=== PATIENT | male | born 1935 | race Caucasian/White ===

== ENCOUNTER 2016-09-22 18:40 | Inpatient (IN) ==
--- NOTE | 2016-09-22 20:44 | Diag Imaging Result Doc PS360 ---
EXAM: HEAD W/O CONTRAST HISTORY: fall, dementia TECHNIQUE: CT of the head without contrast COMMENT: there is generalized cerebral atrophy. There are some calcifications in the internal carotid arteries bilaterally. There is patchy lucency in the periventricular and subcortical white matter. No mass effect bleed or abnormal extra-axial fluid collection is present. The calvarium is somewhat thickened with hyperostosis frontalis interna. There is no evidence of acute bony disease. IMPRESSION: No evidence of acute disease. Chronic microvascular white matter disease. Cerebral atrophy. Electronically signed by Suman De Leon 09/22/2016 8:42 PM
[2016-09-22 20:58] LABS: BASO% 0.3 % (0.0-0.8); EOS# 0.09 X1000 (0.0-0.7); EOS% 0.6 % (0.0-10.0); HEMOGLOBIN 15.8 g/dL (14.0-18.0); IMM GRAN# 0.07 X1000 (0.0-0.04); IMM GRAN% 0.5 % (0.0-0.5); LYMPH# 2.08 X1000 (1.2-3.4); LYMPH% 13.7 % (20.5-51.1); MANUAL DIFF NEEDED? NO; MCH 31.2 PG (27-31); MCHC 35.9 g/dL (33-37); MONO# 1.39 X1000 (0.11-0.59); MONO% 9.2 % (1.7-9.3); MPV 10.3 FL (7.4-10.4); NEUT% 75.7 % (42.2-75.2); PLT 223 X1000 (130-400); RBC 5.06 XMIL (4.7-6.1)
[2016-09-22 21:00] LABS: BILIRUBIN URINE NEGATIVE (NEGATIVE); BLOOD URINE NEGATIVE (NEGATIVE); COLOR YELLOW; GLUCOSE URINE 1000 mg/dL (NEGATIVE); LEUKOCYTES URINE NEGATIVE (NEGATIVE); NITRITE URINE NEGATIVE (NEGATIVE); PH URINE 6.5; PROTEIN URINE TRACE mg/dL (NEGATIVE); SP GRAVITY URINE 1.008; TURBIDITY URINE CLEAR (CLEAR); UR EPITHELIAL CELLS <10 /HPF (<10); URINE BACTERIA NEGATIVE /HPF; URINE CULTURE NEEDED? NO; URINE MICRO REVIEW NEEDED? NO; URINE RBC <10 /HPF (<10); URINE SOURCE CLEAN CATCH; URINE WBC <10 /HPF (<10); UROBILINOGEN URINE NORMAL (NORMAL)
[2016-09-22 21:16] LABS: UR AMPHETAMINES QUAL NONE DETECTED (NONE DETECT); UR BARBITUATES QUAL NONE DETECTED (NONE DETECT); UR BENZODIAZEPIN QUAL NONE DETECTED (NONE DETECT); UR CANNABINOIDS QUAL NONE DETECTED (NONE DETECT); UR COCAINE QUAL NONE DETECTED (NONE DETECT); UR METHADONE QUAL NONE DETECTED (NONE DETECT); UR OPIATES QUAL NONE DETECTED (NONE DETECT); UR OXYCODONE QUAL NONE DETECTED (NONE DETECT); UR PCP QUAL NONE DETECTED (NONE DETECT)
[2016-09-22 21:17] LABS: ALBUMIN 3.7 g/dL (3.5-5.0); CALCIUM 9.2 mg/dL (8.8-10.2); POTASSIUM 4.1 mmol/L (3.5-5.1); TOTAL BILIRUBIN 0.89 mg/dL (0.20-1.00); TOTAL PROTEIN 6.7 g/dL (6.3-8.3)
--- NOTE | 2016-09-23 02:13 | PROVIDER DOCUMENTATION ---
This chart was entered by Patience Hernandez Scribe, acting as scribe for Vernon Rahman PA. HPI-Musculoskeletal Pain/Inj - GENERAL Chief Complaint: Fall Stated Complaint: AMS Time Seen by Provider: 09/22/16 20:17 Source: family - HX OF PRESENT ILLNESS-MUSKULOSKELTAL Nature of Presenting Problem: 81 Y/O M presents to ED with Fall. pt fall tis evening while gwetting out car and walking to his home in the [place]. EMS was called by neighbors. PT fell and broke his cane. Pt denies pain and LOC, unsure of how he fell. pT was a hx of dementia, and was covered in urine when he was found. Pt has noted yellow crusting generalized throughout body. Pt also lives alone. Quality of Pain: reports: none Severity in ED: moderate, severe Onset/Duration: this evening Timing: still present Any recent injury?: No Locality of Occurance: Home - FALL INJURY Location of Pain/Injury: reports: none Pain Radiation: reports: no radiation Reason for Fall: reports: unknown Symptoms prior to fall:: reports: none Loss of Consciousness: no loss of consciousness Injury Associated Symptoms: reports: denies symptoms Review of Systems - Adult - REVIEW OF SYSTEMS - ADULT Constitutional: denies: chills, fever Eyes: reports: no symptoms reported Ears, Nose, Mouth & Throat: reports: no symptoms reported Cardiovascular: reports: no symptoms reported Respiratory: reports: no symptoms reported Gastrointestinal: reports: no symptoms reported Genitourinary: reports: no symptoms reported Musculoskeletal: reports: no symptoms reported, other (fell) Integumentary: reports: no symptoms reported Neurological: reports: no symptoms reported Psychiatric: reports: no symptoms reported Endocrine: reports: no symptoms reported Hematologic/Lymphatic: reports: no symptoms reported Allergic/Immunologic: reports: no symptoms reported All Other Systems: Reviewed and Negative Past History - Adult - PAST MEDICAL HISTORY-ADULT Review of Records: reports: Old Records Reviewed, Nursing Assessment Review, Medications Reviewed, Social history reviewed & non-contributory. Physical Exam-Injury Related - Physical Exam-Injury Related General Appearance: alert, no apparent distress Eyes: PERRL/EOMI, pink conjunctivae Head, Ears, Nose, Mouth & Throat: moist mucous membranes, normal ENT inspection , TMs normal, pharynx normal Neck: full range of motion, supple, normal inspection Respiratory: lungs clear, normal breath sounds Cardiovascular: regular rate, rhythm Abdominal Exam: non tender, soft Back Exam: no CVA tenderness, no vertebral tenderness Extremity: non-tender. negative: normal gait Integumentary: other (yellow crusting generalized on body) Progress - PLAN OF CARE/RESULTS Progress/Plan/Lab Results: Laboratory Results - last 24 hr 09/22/16 09/22/16 09/22/16 20:35 20:38 20:40 WBC 15.15 H RBC 5.06 Hgb 15.8 Hct 44.0 MCV 87.0 MCH 31.2 H MCHC 35.9 RDW Std Deviation 12.5 Plt Count 223 MPV 10.3 Immature Gran % (Auto) 0.5 Neut % (Auto) 75.7 H Lymph % (Auto) 13.7 L Austin % (Auto) 9.2 Eos % (Auto) 0.6 Baso % (Auto) 0.3 Immature Gran # (Auto) 0.07 H Neut # (Auto) 11.47 H Lymph # (Auto) 2.08 Austin # (Auto) 1.39 H Eos # (Auto) 0.09 Baso # (Auto) 0.05 D-Dimer 0.66 H Sodium Potassium Chloride Carbon Dioxide Anion Gap BUN Creatinine Estimated GFR/1.73 m2 BUN/Creatinine Ratio Glucose Calculated Osmolality Calcium Total Bilirubin AST ALT Alkaline Phosphatase Total Protein Albumin Globulin Albumin/Globulin Ratio Urine Source CLEAN CATCH Urine Color YELLOW Urine Turbidity CLEAR Urine pH 6.5 Ur Specific [place] 1.008 Urine Protein TRACE A Ur Glucose (Stick) 1000 A Ur Ketones (Stick) NEGATIVE Urine Blood NEGATIVE Urine Nitrite NEGATIVE Urine Bilirubin NEGATIVE Urobilinogen Dipstick NORMAL Urine Leukocytes NEGATIVE Urine WBC (Auto) <10 Urine RBC (Auto) <10 U Epithel Cells (Auto) <10 Urine Bacteria (Auto) NEGATIVE Urine Opiates Screen Ur Oxycodone Screen Ur Methadone, Qual Ur Barbiturates Screen Ur Phencyclidine Scrn Ur Amphetamines Screen U Benzodiazepines Scrn Urine Cocaine Screen U Cannabinoids Screen 09/22/16 09/22/16 20:48 20:48 WBC RBC Hgb Hct MCV MCH MCHC RDW Std Deviation Plt Count MPV Immature Gran % (Auto) Neut % (Auto) Lymph % (Auto) Austin % (Auto) Eos % (Auto) Baso % (Auto) Immature Gran # (Auto) Neut # (Auto) Lymph # (Auto) Austin # (Auto) Eos # (Auto) Baso # (Auto) D-Dimer Sodium 135 L Potassium 4.1 Chloride 96 L Carbon Dioxide 26 Anion Gap 13 BUN 24 H Creatinine 1.2 Estimated GFR/1.73 m2 58 BUN/Creatinine Ratio 20 Glucose 301 H Calculated Osmolality 285 Calcium 9.2 Total Bilirubin 0.89 AST 18 ALT 23 Alkaline Phosphatase 69 Total Protein 6.7 Albumin 3.7 Globulin 3.0 Albumin/Globulin Ratio 1.2 Urine Source Urine Color Urine Turbidity Urine pH Ur Specific [place] Urine Protein Ur Glucose (Stick) Ur Ketones (Stick) Urine Blood Urine Nitrite Urine Bilirubin Urobilinogen Dipstick Urine Leukocytes Urine WBC (Auto) Urine RBC (Auto) U Epithel Cells (Auto) Urine Bacteria (Auto) Urine Opiates Screen NONE DETECTED Ur Oxycodone Screen NONE DETECTED Ur Methadone, Qual NONE DETECTED Ur Barbiturates Screen NONE DETECTED Ur Phencyclidine Scrn NONE DETECTED Ur Amphetamines Screen NONE DETECTED U Benzodiazepines Scrn NONE DETECTED Urine Cocaine Screen NONE DETECTED U Cannabinoids Screen NONE DETECTED Orders Category Date Time Status Admit - [facility] Routine AdmDCTranf 09/23/16 02:36 Ordered Activity - Strict Bedrest ORDERED Care 09/23/16 02:36 Active FSBS/Accucheck Result AC + HS Care 09/23/16 02:36 Active Intake and Output-Strict ORDERED Care 09/23/16 02:36 Active Vital Signs Order Q 8-HR ASSESS Care 09/23/16 02:36 Active Social Service Consult Routine Cons 09/23/16 02:36 Active Wound Care/ET Consult DIRECTED Cons 09/23/16 02:36 Ordered Diabetic Diet Diet 09/23/16 01:34 Active ANGIOGRAM/PULMONARY ARTERIES [CT] Stat Exams 09/23/16 00:32 Completed CHEST-1 VIEW [RAD] Stat Exams 09/22/16 23:23 Completed HEAD W/O CONTRAST [CT] Stat Exams 09/22/16 20:17 Completed BASIC METABOLIC PANEL [CHEM] Routine Lab 09/24/16 06:00 Ordered CBC WITH DIFF [HEME] Routine Lab 09/24/16 06:00 Ordered CBC WITH DIFF [HEME] Stat Lab 09/22/16 20:38 Completed COMPREHENSIVE METABOLIC PANEL [CHEM] Stat Lab 09/22/16 20:48 Completed D-DIMER [CHEM] Stat Lab 09/22/16 20:35 Completed TSH Routine Lab 09/24/16 06:00 Ordered UA NIMS W/REFLEX CULT [URINALYSIS] Stat Lab 09/22/16 20:40 Completed UDS [URINE DRUG SCREEN] Stat Lab 09/22/16 20:48 Completed 0.9% Sodium Chloride Inj [Ns] 1,000 ml Med 09/23/16 02:36 Active IV 75 mls/hr Ammonium Lactate 12% Lotion [Lac-Hydrin 12% Lotion] Med 09/23/16 09:00 Active See Dose Instructions TOP BID Enoxaparin [Lovenox] Med 09/23/16 02:36 Active 40 mg SUBQ Q24H Insulin Lispro [Humalog] Med 09/23/16 07:00 Active See Protocol SUBQ 0700,1100,1600,2100 Nystatin Powder [Mycostatin Powder] Med 09/23/16 09:00 Active See Dose Instructions TOP BID Ondansetron [Zofran] Med 09/23/16 02:36 Active 4 mg IV Q4H PRN PRN Physical Therapy Eval/Treatment [OM.PT] Routine Ther 09/23/16 02:36 Active Transfer/Admit Order [TRANSFER] Routine Transfer 09/23/16 01:31 Completed Result Diagrams: 09/22/16 20:38 09/22/16 20:48 - REASSESSMENT Reassessment #1 Time Reassessed: 23:45 (Checked D dimer for pt to r/o DVT/PE as per family has been very immobile. Pt is tachycardic. D dimer elevated, so ordered CT. Dr. Esquivel came to evaluate the pt to see if needs admission, and pt is giong to be admitted to the hospital. ) - EKG 1 Time of EKG reading by physician:: 21:05 EKG Read and Signed by:: Geoffrey Smith EKG Interpretation (*Must complete 3 of following elements*): Normal Rate: 95 Rhythm: NSR Comments: Normal ECG - CONSULTS/PCP/HOSPITALIST Notification #1 *Consult/PCP/Hospitalist*: Dr. Esquivel Time Discussed: 22:34 (Family is wanting pt admitted as they cannot take him back home (police stated that the home is unlivable and cannot be re-entered, and the daughter has no room for pt). Unfortunately there is no admission criteria for the pt at this time, and Dr. Esquivel cannot admit pt for social reasons, does not allow. ) Consult Disposition: other Departure - Departure Date of Disposition Decision: 09/22/16 Time of Disposition Decision: 00:00 DIAGNOSIS: Fall Qualifiers: Encounter type: initial encounter Qualified Code(s): W19.XXXA - Unspecified fall, initial encounter Dementia Qualifiers: Dementia type: unspecified type Dementia behavioral disturbance: without behavioral disturbance Qualified Code(s): F03.90 - Unspecified dementia without behavioral disturbance Neglected elder Qualifiers: Encounter type: initial encounter Qualified Code(s): T74.01XA - Adult neglect or abandonment, confirmed, initial encounter Disposition: ADMITTED INPATIENT 09 Certified Medical Emergency: Emergent Condition: Stable - Critical Care Note This patient required my direct & personal management of CC.: No Attestation - Physician/ LILIANE Attestation Patient care was provided by Advanced Practice Provider:: Yes Advanced Practice Provider:: Vernon Rahman Advanced Practice Provider documentation review:: The Mid-level provider documentation, treatment plan and medical decision making was reviewed by the physician who agrees with all treatment and medical decision making by the MLP. This chart was documented by the indicated scribe, (Patience Hernandez Scribe) and accurately reflects the services I performed and decisions made by , Vernon Rahman PA, as attested by the provider's signature.
[2016-09-23] MEDS ORDERED: ZOFRAN IV PRN (02:36)
[2016-09-23] MEDS ORDERED: INSULIN PEN NEEDLES ONE (03:55)
[2016-09-23] MEDS: LOVENOX SUBQ SCH (04:10)
[2016-09-23] MEDS: NS 1,000 ML IV SCH ×2 (04:11→20:45)
[2016-09-23] MEDS: LAC-HYDRIN 12% LOTION TOP SCH ×3 (04:11→20:48)
[2016-09-23] MEDS: MYCOSTATIN POWDER TOP SCH ×3 (04:12→20:48)
--- NOTE | 2016-09-23 05:01 | HISTORY AND PHYSICAL ---
PRIMARY CARE PROVIDER: None. CHIEF COMPLAINT: Altered mental status, neglect. 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 Apparently, he has a fairly severe dementia, lives at home by himself but lives in very filthy conditions. He reportedly wears Depends. On arrival to the emergency room, he was noted as having maggots in the Depends. He drove to [place], I believe, today. Got back home and attempted to go inside and fell somewhere between his car and the house. Family was originally at bedside , I believe. He has a daughter who lives close. He was admitted in 2013, it looks by Dr. Vincent Castillo. At that time, it was noted that he lived in very filthy conditions and the daughter was worried about self neglect. They stated that they would be unable to care for him at home. Laboratory data, a CT and chest x-ray were performed in the emergency room. The chest x-ray was clear. However, there was some question about the right first rib but the image appears to be somewhat malrotated. A CTA has been ordered for an elevated D-dimer. Laboratory data showed elevated glucose. I believe that the patient has a history of diabetes type 2 which appears to be uncontrolled as well as a mild elevation to his white blood cell count. He will be admitted for further evaluation and treatment. PAST MEDICAL HISTORY: Per H and P dictated in 2013: 1. BPH. 2. Gallstones. 3. Dementia. 4. Diabetes mellitus type 2. 5. Hypertension. 6. Chronic back pain. 7. Left knee osteoarthritis. PREVIOUS SURGICAL HISTORY: Mcdonald teeth removal, had a colonoscopy in [address] Engel. HOME MEDICATIONS: None could be obtained. ALLERGIES: IV contrast and penicillin per old charting. SOCIAL HISTORY: Retired CPA. Was a 2nd time but unsure if he is still . I do not believe he lives with a at any rate. Denies tobacco. Apparently, he did drink at 1 time. Still states that he likes a good beer. He lives in [place]. No illicit drug use. FAMILY HISTORY: Father of stomach cancer at 89. Mother at 92 of unknown causes. REVIEW OF SYSTEMS: Fourteen point review of systems conducted with the patient. Pertinent positives as listed above in the HPI. All other systems reviewed and found to be negative. PHYSICAL EXAMINATION: VITAL SIGNS: Temperature 98.4 degrees, pulse 92, respirations 18, blood pressure 162/100, oxygen saturation 97% on room air. GENERAL: A very confused but pleasant, 81-year-old male lying on the ER stretcher. No acute distress. HEENT: Head is atraumatic, normocephalic. Pupils equal, round, reactive to light. Extraocular eye movements are intact. Sclerae are anicteric. Oral mucosa is dry. NECK: Supple. Trachea is midline. No JVD. CARDIAC: S1 and S2 are appreciated. No murmurs, gallops, or rubs. LUNGS: Clear to auscultation bilaterally. No rhonchi, wheezes, or rales. ABDOMEN: Protuberant, soft, nondistended, nontender. Bowel sounds present in all 4 quadrants, normoactive. No pulsatile mass. No organomegaly. RECTAL: Examination deferred. GENITOURINARY: The patient voids. Otherwise deferred. NEUROLOGICAL: Disoriented to place, time, and situation. Oriented to person. No focal deficits noted. SKIN: Patti-area and buttocks are reddened with extensive rash noted to be tinea cruris. He wears Depends. EXTREMITIES: Bilateral lower extremities, no clubbing, cyanosis, or edema. Bilateral feet have dry scaling skin. Toenails are unkempt. DIAGNOSTIC DATA: CT of the head shows chronic ischemic changes and atrophy. Chest x-ray, no acute disease. CTA of the thorax is pending. LABORATORY DATA: WBC 15.51, hemoglobin 15.5, hematocrit 44, platelet count 223, 000. D-dimer 0.66. Sodium 135, potassium 4.1, chloride 96, carbon dioxide 26, BUN 24, creatinine 1.2, glucose 301. Urine, 1000 glucose, trace protein, otherwise unremarkable. Toxicology screen is negative. ASSESSMENT: 1. Diabetes mellitus type [address] will place on sliding scale insulin, diabetic diet. 2. Fluid volume depletion. We will start normal saline at 75 mL an hour for gentle fluid hydration. 3. Dementia, aware. We will place close to the nursing station. 4. Hypertension, aware. Patient was mildly hypotensive on arrival related to fluid volume depletion. He is now normotensive. We will not start antihypertensives at this time. We will trend and start medications when appropriate. 5. Tinea cruris. We will treat with nystatin powder twice a day. 6. Further recommendations per patient's clinical course. Dictated by JULIANNE Mckinney for Ann Esquivel MD Seen,examined and discussed case with PUBLIC RELATIONS ANALYST. cc: JULIANNE Mckinney MD [facility]
[2016-09-23] MEDS: HUMALOG SUBQ SCH ×4 (07:00→20:46)
--- NOTE | 2016-09-23 07:28 | Diag Imaging Result Doc PS360 ---
CHEST-1 VIEW - 09/22/2016 INDICATION: fall, tachycardic TECHNIQUE: COMPARISON: 12/14/2013 FINDINGS: The lungs are normally expanded and clear. Heart size and mediastinal contours are normal. No pneumothorax or pleural effusion. Stable unusual contour of the ribs and chest wall particularly at the superior right side. IMPRESSION: Negative exam. Electronically signed by Dg Oliveira 09/23/2016 7:26 AM
--- NOTE | 2016-09-23 07:37 | Diag Imaging Result Doc PS360 ---
EXAM: ANGIOGRAM/PULMONARY ARTERIES INDICATION: elevated D dimer TECHNIQUE: COMPARISON: None. FINDINGS: There is no evidence of pulmonary embolism. There is trace atherosclerotic calcification at the aortic arch. There is no evidence of aortic aneurysm or dissection. There is no evidence of significant cardiomegaly. There are calcified mediastinal lymph nodes indicating prior granulomatous disease. There is a 9.8 mm noncalcified nodule near the right lung apex. Based on Fleischner Society criteria, an initial follow-up CT is recommended in 3 months for a nodule this size. There is mild chronic appearing interstitial thickening at the lung bases suggesting mild fibrotic change. There is no definite airspace consolidation. There is no pleural fluid collection or pneumothorax appreciated. Limited views of the upper abdomen reveal a prominent calcified stone in the gallbladder lumen with no pericholecystic inflammatory changes. There is a small left hepatic lobe cyst. There is a 1.4 cm low dense focus arising from the upper left renal pole that statistically most likely represents a cyst containing proteinaceous debris or blood products. IMPRESSION: 1.Right apical noncalcified lung nodule measuring up to 1.9 cm. Please see above discussion. 2.No evidence of pulmonary embolism. 3.Other incidental/nonacute findings detailed above but no definite acute pathology. Electronically signed by Ritchie Sanchez 09/23/2016 7:35 AM
[2016-09-24] MEDS: LOVENOX SUBQ SCH (01:47)
[2016-09-24 05:40] LABS: MANUAL DIFF NEEDED? NO
[2016-09-24 05:43] LABS: BASO% 0.3 % (0.0-0.8); EOS# 0.18 X1000 (0.0-0.7); EOS% 1.8 % (0.0-10.0); HEMATOCRIT 41.4 % (42.0-52.0); HEMOGLOBIN 14.7 g/dL (14.0-18.0); IMM GRAN# 0.04 X1000 (0.0-0.04); IMM GRAN% 0.4 % (0.0-0.5); LYMPH# 2.86 X1000 (1.2-3.4); LYMPH% 28.1 % (20.5-51.1); MCH 31.6 PG (27-31); MCHC 35.5 g/dL (33-37); MONO# 1.23 X1000 (0.11-0.59); MONO% 12.1 % (1.7-9.3); MPV 10.4 FL (7.4-10.4); NEUT% 57.3 % (42.2-75.2); PLT 190 X1000 (130-400); RBC 4.65 XMIL (4.7-6.1)
[2016-09-24] MEDS: HUMALOG SUBQ SCH ×4 (06:06→22:46)
[2016-09-24 06:16] LABS: AGAP 10; BUN 20 mg/dL (8-22); CALCIUM 8.7 mg/dL (8.8-10.2); CHLORIDE 100 mmol/L (98-107); COSMO 282; POTASSIUM 4.1 mmol/L (3.5-5.1); SODIUM 138 mmol/L (136-145); TCO2 28 mmol/L (25-35)
[2016-09-24] MEDS: NS 1,000 ML IV SCH (07:49)
[2016-09-24] MEDS: LEVEMIR SUBQ SCH (08:48)
--- NOTE | 2016-09-24 12:07 | PROGRESS NOTE ---
DATE: 09/24/2016 SUBJECTIVE: The patient is sitting up comfortably in bed. He just finished his breakfast. He is inquiring when he can go home. The patient does appear to be forgetful. OBJECTIVE: Vital Signs: Temperature 98.9 degrees, blood pressure 132/78, heart rate 81, respirations 18, O2 saturations 97% on room air. General: This is a chronically ill-appearing, elderly male, lying in bed in no acute distress. Head: Normocephalic, atraumatic. Heart: S1, S2. Normal. Regular rate and rhythm. Lungs: Clear to auscultation bilaterally. Abdomen: Positive bowel sounds. Soft, nontender, nondistended. Extremities: No edema. No cyanosis. No calf tenderness. Neurologic: The patient is awake and alert. He is able to move all 4 extremities. He does have periods of confusion, however. LABS: White blood cell count 10, hemoglobin 14, hematocrit 41, platelets 190. Sodium 138, potassium 4.1, chloride 100, CO2 28, BUN 20, creatinine 1.1, glucose 161, calcium 8.7, TSH 2.23, vitamin D 12.9. ASSESSMENT AND PLAN: 1. Uncontrolled diabetes mellitus type 2. The patient was started on Levemir. We will continue on this plus sliding scale insulin coverage. 2. Dehydration. Resolved. 3. Hypertension. Controlled. 4. Dementia. Aware. The patient is unable to take care of himself at home and is unable to make his own medical decisions. DISPOSITION: Machine Design Checker is working on placement for the patient. The patient is unable to make his own medical decisions due to his advanced dementia. cc: Agustina Joyce MD MTDD
[2016-09-24] MEDS: VITAMIN D PO SCH (12:18)
[2016-09-24] MEDS: MYCOSTATIN POWDER TOP SCH ×2 (15:55→22:49)
[2016-09-24] MEDS: LAC-HYDRIN 12% LOTION TOP SCH ×2 (15:55→22:49)
[2016-09-24] MEDS ORDERED: TYLENOL PO PRN (21:26)
[2016-09-25] MEDS: LOVENOX SUBQ SCH (03:05)
[2016-09-25] MEDS: HUMALOG SUBQ SCH ×4 (06:05→22:09)
[2016-09-25 06:17] LABS: AGAP 11; BUN 16 mg/dL (8-22); CALCIUM 8.4 mg/dL (8.8-10.2); CHLORIDE 96 mmol/L (98-107); COSMO 272; POTASSIUM 4.5 mmol/L (3.5-5.1); SODIUM 134 mmol/L (136-145); TCO2 27 mmol/L (25-35)
[2016-09-25] MEDS: LEVEMIR SUBQ SCH (08:36)
[2016-09-25] MEDS: LAC-HYDRIN 12% LOTION TOP SCH ×2 (16:31→20:40)
[2016-09-25] MEDS: MYCOSTATIN POWDER TOP SCH ×2 (16:31→20:40)
--- NOTE | 2016-09-25 17:39 | PROGRESS NOTE ---
DATE: 09/25/2016 SUBJECTIVE: The patient is resting comfortably in bed. He has no complaints. OBJECTIVE: Vital Signs: Temperature 98.6, blood pressure 130/60, heart rate 74 , respirations 18, O2 saturations 97% on room air. General: This is an elderly male, lying in bed, in no acute distress. Head: Normocephalic, atraumatic. Heart: S1, S2. Normal. Regular rate and rhythm. Lungs: Clear to auscultation bilaterally. No wheezing, no rales. No rhonchi. Abdomen: Positive bowel sounds. Soft, nontender, nondistended. Extremities: No edema. No cyanosis. No calf tenderness. LABS: Sodium 134, potassium 4.5, chloride 96, CO2 of 27. BUN 16, creatinine 0.9. Glucose 140, calcium 8.4. ASSESSMENT AND PLAN: 1. Uncontrolled diabetes mellitus type 2. Continue on Levemir plus sliding scale insulin. 2. Dehydration, resolved. 3. Alzheimer's dementia, aware. DISPOSITION: visitor services specialist is working on correction placement for the patient. cc: Agustina Joyce MD MTDD
[2016-09-26] MEDS: LOVENOX SUBQ SCH (01:41)
[2016-09-26 05:58] LABS: CALCIUM 8.9 mg/dL (8.8-10.2); POTASSIUM 4.1 mmol/L (3.5-5.1)
[2016-09-26] MEDS: HUMALOG SUBQ SCH ×4 (06:48→21:16)
[2016-09-26] MEDS ORDERED: NS 1,000 ML IV SCH (07:22)
[2016-09-26] MEDS: LEVEMIR SUBQ SCH (09:57)
[2016-09-26] MEDS: LAC-HYDRIN 12% LOTION TOP SCH ×2 (09:58→21:17)
[2016-09-26 10:23] LABS: UR CREAT RANDOM 83.5 mg/dL (14-26)
[2016-09-26] MEDS: MYCOSTATIN POWDER TOP SCH ×2 (12:11→21:16)
--- NOTE | 2016-09-26 16:38 | PROGRESS NOTE ---
DATE: 09/26/2016 SUBJECTIVE: The patient is resting comfortably in bed. He has no complaints at this time. OBJECTIVE: Vital Signs: Temperature 98.5 degrees, blood pressure 162/85, heart rate 85, respirations 16, O2 saturations 95% on room air. General: This is an elderly male, lying in bed, in no acute distress. Head: Normocephalic, atraumatic. Heart: S1, S2. Normal. Regular rate and rhythm. Lungs: Clear to auscultation bilaterally. No crackles. No rales. Abdomen: Positive bowel sounds. Soft, nontender, nondistended. Extremities: No edema. No cyanosis. No calf tenderness. Neurologic: The patient is alert and oriented x3. LABS: Sodium 139, potassium 4.1, chloride 99, CO2 30, BUN 24, creatinine 1.4, glucose 159. ASSESSMENT AND PLAN: 1. Acute kidney injury. We will check urine studies. We will start the patient on normal saline and monitor the patient's urine output closely. 2. Uncontrolled diabetes mellitus type 2. Continue on Levemir plus sliding scale insulin. 3. Hypertension. We will start the patient on Coreg. 4. Dehydration. Resolved. 5. Alzheimer's dementia. Aware. 6. Disposition. Retail Store Associate and case management are working on fci placement for the patient. cc: Agustina Joyce MD
[2016-09-26] MEDS: COREG PO SCH (21:17)
[2016-09-26] MEDS: CALMOSEPTINE OINTMENT TOP PRN (22:28)
[2016-09-27] MEDS: LOVENOX SUBQ SCH (03:05)
[2016-09-27 06:19] LABS: AGAP 8; BUN 17 mg/dL (8-22); CALCIUM 9.2 mg/dL (8.8-10.2); CHLORIDE 100 mmol/L (98-107); COSMO 277; POTASSIUM 4.1 mmol/L (3.5-5.1); SODIUM 137 mmol/L (136-145); TCO2 29 mmol/L (25-35)
[2016-09-27] MEDS: HUMALOG SUBQ SCH ×4 (06:47→20:49)
[2016-09-27] MEDS: LEVEMIR SUBQ SCH (09:49)
[2016-09-27] MEDS: LAC-HYDRIN 12% LOTION TOP SCH ×2 (09:49→20:49)
[2016-09-27] MEDS: COREG PO SCH ×2 (09:49→20:49)
[2016-09-27] MEDS: MYCOSTATIN POWDER TOP SCH ×2 (18:04→20:49)
--- NOTE | 2016-09-27 18:42 | PROGRESS NOTE ---
DATE: 09/27/2016 SUBJECTIVE: The patient is resting comfortably in bed. He has no complaints. OBJECTIVE: Vital Signs: Temperature 98 degrees, blood pressure 137/89, heart rate 71, respirations 20, O2 saturation is 98% on room air. General: This is an elderly male, lying in bed, in no acute distress. Head: Normocephalic, atraumatic. Heart: S1, S2. Normal. Regular rate and rhythm. Lungs: Clear to auscultation bilaterally. No crackles. No rales. Abdomen: Positive bowel sounds. Soft, nontender, nondistended. Extremities: No edema. No cyanosis. ASSESSMENT AND PLAN: 1. Acute kidney injury. Resolved. Will discontinue the IV fluids. 2. Dehydration. Resolved. 3. Alzheimer's dementia. Aware. 4. Vitamin D deficiency. Continue on vitamin D replacement. 5. Hypertension. Continue on Coreg. 6. Diabetes mellitus type 2. Continue on Levemir plus sliding scale insulin. 7. Continue with physical therapy. 8. Disposition. technical services librarian and case management are working on fdc placement for the patient. cc: Agustina Joyce MD
[2016-09-28] MEDS: LOVENOX SUBQ SCH (04:50)
[2016-09-28] MEDS: HUMALOG SUBQ SCH ×4 (06:25→22:36)
[2016-09-28] MEDS: LEVEMIR SUBQ SCH (09:31)
[2016-09-28] MEDS: COREG PO SCH ×3 (09:32→22:37)
[2016-09-28] MEDS: LAC-HYDRIN 12% LOTION TOP SCH ×2 (09:35→22:34)
[2016-09-28] MEDS: MYCOSTATIN POWDER TOP SCH ×2 (09:35→22:35)
[2016-09-28 10:17] LABS: URINE MICRO REVIEW NEEDED? NO; URINE SOURCE CATH
[2016-09-28 10:24] LABS: BILIRUBIN URINE NEGATIVE (NEGATIVE); BLOOD URINE TRACE (NEGATIVE); COLOR YELLOW; GLUCOSE URINE 100 mg/dL (NEGATIVE); LEUKOCYTES URINE NEGATIVE (NEGATIVE); NITRITE URINE NEGATIVE (NEGATIVE); PH URINE 5.5; PROTEIN URINE NEGATIVE (NEGATIVE); SP GRAVITY URINE 1.018; TURBIDITY URINE CLEAR (CLEAR); UR EPITHELIAL CELLS <10 /HPF (<10); URINE BACTERIA NEGATIVE /HPF; URINE RBC <10 /HPF (<10); URINE WBC <10 /HPF (<10); UROBILINOGEN URINE NORMAL (NORMAL)
--- NOTE | 2016-09-28 18:06 | PROGRESS NOTE ---
DATE: 09/28/2016 SUBJECTIVE: The patient is resting comfortably in bed. No acute events noted overnight. OBJECTIVE: Vital Signs: Temperature 98.7 degrees, blood pressure 148/90, heart rate 72, respirations 22, O2 saturation is 97% on room air. General: This is a chronically ill- appearing, elderly male, lying in bed, in no acute distress. Head: Normocephalic, atraumatic. Heart: S1, S2. Normal. Regular rate and rhythm. Lungs: Equal air entry bilaterally. No crackles. No rales. Abdomen: Positive bowel sounds. Soft, nontender, nondistended. Extremities: No edema. No cyanosis. No calf tenderness. Neurological: Patient is awake and alert but is demented. LABS: None. ASSESSMENT AND PLAN: 1. Dehydration. Resolved. 2. Alzheimer's dementia. Aware. 3. Vitamin D deficiency. Continue on vitamin D replacement. 4. Hypertension. Continue on Coreg. 5. Right apical lung nodule. The patient will need a repeat CT scan in about 3 months. 6. Diabetes mellitus type 2. Continue on Levemir. 7. Disposition. financial services manager is working on jail placement. cc: Agustina Joyce MD
[2016-09-29] MEDS: LOVENOX SUBQ SCH (02:41)
[2016-09-29] MEDS: HUMALOG SUBQ SCH ×4 (06:11→20:27)
[2016-09-29 06:24] LABS: CALCIUM 8.4 mg/dL (8.8-10.2); POTASSIUM 4.7 mmol/L (3.5-5.1)
[2016-09-29] MEDS: COREG PO SCH ×2 (08:28→20:28)
[2016-09-29] MEDS: LAC-HYDRIN 12% LOTION TOP SCH ×2 (08:32→20:28)
[2016-09-29] MEDS: MYCOSTATIN POWDER TOP SCH ×2 (08:33→20:29)
[2016-09-29] MEDS: CALMOSEPTINE OINTMENT TOP PRN (08:34)
[2016-09-29] MEDS: LEVEMIR SUBQ SCH (08:35)
[2016-09-29] MEDS: NS 1,000 ML IV SCH ×2 (16:00→20:28)
[2016-09-30] MEDS: NS 1,000 ML IV SCH (00:32)
[2016-09-30] MEDS: LOVENOX SUBQ SCH (03:32)
--- NOTE | 2016-09-30 03:45 | PROGRESS NOTE ---
DATE: 09/29/2016 SUBJECTIVE: The patient is resting comfortably in bed. He has no complaints. No acute events noted overnight. OBJECTIVE: Vital Signs: Temperature 98 degrees, blood pressure 167/78, heart rate 68 respirations 18, O2 saturation 98% on room air. General: This is an elderly male lying in bed in no acute distress. Head: Normocephalic, atraumatic. Heart: S1, S2. Normal. Regular rate and rhythm. Lungs: Equal air entry bilaterally no crackles no rales. Abdomen: Positive bowel sounds. Soft, nontender, nondistended. Extremities: No edema. No cyanosis. Neurologic: The patient is awake and alert but demented. LABS: Sodium 136, potassium 4.7, chloride 98, CO2 30, BUN 27, creatinine 1.3, glucose 192, calcium 8.4. ASSESSMENT AND PLAN: 1. Uncontrolled diabetes mellitus type 2. Will increase the patient's Levemir dosage to 35 units subcutaneous daily. Continue with subcutaneous sliding scale insulin. 2. Dehydration. Resolved. 3. Alzheimer dementia. Aware. 4. Vitamin D deficiency. Continue on vitamin D replacement. 5. Acute kidney injury. Will start the patient on gentle IV fluid hydration. Will repeat renal profile in the morning. 6. Disposition. coordinator of rehabilitation services is working on alf placement for the patient. 7. Right apical lung nodule. The patient will need a repeat CT of the chest in about 3 months to assess size. cc: Agustina Joyce MD
[2016-09-30] MEDS: HUMALOG SUBQ SCH ×4 (06:03→20:53)
[2016-09-30 06:31] LABS: AGAP 11; BUN 22 mg/dL (8-22); CALCIUM 8.6 mg/dL (8.8-10.2); CHLORIDE 99 mmol/L (98-107); COSMO 282; POTASSIUM 4.4 mmol/L (3.5-5.1); SODIUM 138 mmol/L (136-145); TCO2 28 mmol/L (25-35)
[2016-09-30] MEDS: COREG PO SCH ×2 (08:52→20:23)
[2016-09-30] MEDS: LAC-HYDRIN 12% LOTION TOP SCH ×2 (08:53→20:23)
[2016-09-30] MEDS: MYCOSTATIN POWDER TOP SCH ×2 (08:54→20:23)
[2016-09-30] MEDS ORDERED: LEVEMIR SUBQ SCH (09:00)
--- NOTE | 2016-09-30 14:31 | PROGRESS NOTE ---
DATE: 09/30/2016 SUBJECTIVE: The patient is resting comfortably in bed. He has no complaints. OBJECTIVE: Vital Signs: Temperature 97 degrees, blood pressure 150/86, heart rate 68, respirations 20, O2 saturations 98% on room air. General: This is an elderly male, lying in bed, in no acute distress. Head: Normocephalic, atraumatic. Heart: S1, S2. Normal. Regular rate and rhythm. Lungs: Clear to auscultation bilaterally. No crackles. No rales. Abdomen: Positive bowel sounds. Soft, nontender, nondistended. Extremities: No edema. No cyanosis. No calf tenderness. Neurologic: The patient is alert and oriented x3. LABS: Sodium 138, potassium 4.4, chloride 99, CO2 28, BUN 22, creatinine 1, glucose 160, calcium 8.6. ASSESSMENT AND PLAN: 1. Uncontrolled diabetes mellitus type 2. Continue on Levemir 35 units subcutaneous daily plus sliding scale insulin. 2. Vitamin D deficiency. Continue with vitamin D replacement. 3. Alzheimer's dementia. Aware. 4. Acute kidney injury. Resolved. 5. Right apical lung nodule. The patient will need a repeat CT scan in about 3 months. Will have the patient follow up with a photography and prints curator as outpatient for further evaluation. 6. Continue with physical therapy. 7. Disposition. security services specialist is working on snf placement for the patient. cc: Agustina Joyce MD
[2016-10-01 05:40] LABS: HEMATOCRIT 43.4 % (42.0-52.0); MCH 31.7 PG (27-31); MCHC 34.6 g/dL (33-37); MCV 91.8 FL (81-99); MPV 10.2 FL (7.4-10.4); RBC 4.73 XMIL (4.7-6.1)
[2016-10-01 06:01] LABS: AGAP 9; BUN 23 mg/dL (8-22); CALCIUM 8.7 mg/dL (8.8-10.2); CHLORIDE 97 mmol/L (98-107); COSMO 277; POTASSIUM 4.6 mmol/L (3.5-5.1); SODIUM 134 mmol/L (136-145); TCO2 28 mmol/L (25-35)
[2016-10-01] MEDS: HUMALOG SUBQ SCH ×4 (06:35→22:18)
[2016-10-01] MEDS: LOVENOX SUBQ SCH (06:36)
[2016-10-01] MEDS ORDERED: INSULIN PEN NEEDLES ONE (06:54)
[2016-10-01] MEDS ORDERED: LEVEMIR SUBQ SCH (08:24)
[2016-10-01] MEDS: VITAMIN D PO SCH (09:17)
[2016-10-01] MEDS: LAC-HYDRIN 12% LOTION TOP SCH ×2 (09:18→22:19)
[2016-10-01] MEDS: MYCOSTATIN POWDER TOP SCH ×2 (09:18→22:19)
[2016-10-01] MEDS: COREG PO SCH ×2 (09:18→22:19)
--- NOTE | 2016-10-01 18:18 | PROGRESS NOTE ---
DATE: 10/01/2016 SUBJECTIVE: This patient is resting comfortably in bed. He has no complaints. Family members at the bedside, his . OBJECTIVE: Vital Signs: Temperature 98.5, pulse 68, respiratory rate 20, blood pressure 158/79, oxygen saturation 98 on room air. HEENT: Head normocephalic. No trauma. PERRLA. Neck: Supple. No JVD. No masses. Central trachea. Chest: Clear to auscultation. No wheezing. No rales. Abdomen: Soft, nontender, nondistended. Extremities: No edema. No clubbing. No cyanosis. Neurological: The patient is alert and oriented x3 at this moment. LABORATORY: WBC 9.5, hemoglobin 15, hematocrit 43.4, platelet 195,000. Sodium 134, potassium 4.6, chloride 97, bicarbonate 28, BUN 23, creatinine 1, glucose 187, calcium 8.7. ASSESSMENT AND PLAN: 1. Uncontrolled diabetes mellitus type 2. I will increase the dose of Levemir from 35 to 40 units daily. I will also will continue with the sliding scale insulin and pattern of blood sugar. 2. Dehydration, resolved. 3. Vitamin D deficiency. Continue with vitamin D replacement. 4. Alzheimer's dementia. Aware. 5. Acute kidney injury. This is much better. Continue to monitor. 6. Right apical lung nodule. This patient will need to repeat a CT scan of the chest in about 3 months. He needs to follow up with a continuity person as an outpatient for evaluation. 7. Physical deconditioning continue physical therapy. 8. Disposition. retail services professional is working on [facility] placement for this patient. cc: Chencho Young MD
[2016-10-02 06:03] LABS: AGAP 11; BUN 27 mg/dL (8-22); CALCIUM 8.7 mg/dL (8.8-10.2); CHLORIDE 97 mmol/L (98-107); COSMO 285; POTASSIUM 4.5 mmol/L (3.5-5.1); SODIUM 137 mmol/L (136-145); TCO2 29 mmol/L (25-35)
[2016-10-02] MEDS: LOVENOX SUBQ SCH (06:08)
[2016-10-02] MEDS: HUMALOG SUBQ SCH ×4 (06:09→21:42)
[2016-10-02] MEDS ORDERED: LEVEMIR SUBQ SCH (08:00)
[2016-10-02] MEDS: COREG PO SCH ×2 (09:32→21:42)
[2016-10-02] MEDS: LAC-HYDRIN 12% LOTION TOP SCH ×2 (09:35→21:42)
[2016-10-02] MEDS: MYCOSTATIN POWDER TOP SCH ×2 (09:35→21:43)
[2016-10-02] MEDS: CALMOSEPTINE OINTMENT TOP PRN (09:35)
--- NOTE | 2016-10-02 15:18 | PROGRESS NOTE ---
DATE: 10/02/2016 SUBJECTIVE: This patient is resting comfortably in bed. No complaints today, no acute events overnight. OBJECTIVE: Vital Signs: Temperature 98.6 degrees, pulse 69, respiratory rate 20, blood pressure 148/78, O2 saturation 97% on room air. HEENT: Head normocephalic. No trauma. PERRLA. Neck: Supple. No JVD. No masses. Central trachea. Chest: Clear to auscultation. No wheezing. No rales. Abdomen: Soft, nontender, nondistended. No hepatosplenomegaly. Extremities: No edema. No clubbing. No cyanosis. Neurological: The patient is alert and oriented x3. Generalized weakness. He moves all 4 extremities. LABORATORY: Sodium 137, potassium 4.5, chloride 97, bicarbonate 29, BUN 27, creatinine 1.1, glucose 211, calcium 8.7. ASSESSMENT AND PLAN: 1. Uncontrolled diabetes mellitus type 2. I increased the dose of Levemir from 40 to 45 units per day. I will also continue with sliding scale insulin and pattern of blood sugar. 2. Dehydration. Resolved. 3. Vitamin D deficiency. Continue with vitamin D replacement. 4. Alzheimer dementia. Aware. 5. Acute kidney injury. This is much better. Continue to monitor. 6. Right apical lung nodule. This patient will need to repeat the CT scan of his chest in about 3 months. He needs to follow with a piano maker as an outpatient for evaluation. 7. Physical deconditioning. Continue physical therapy. 8. Disposition. Soda Flaker is working on group home placement for this patient. cc: Chencho Young MD
[2016-10-03 05:49] LABS: CALCIUM 9.7 mg/dL (8.8-10.2); POTASSIUM 4.4 mmol/L (3.5-5.1)
[2016-10-03] MEDS: LOVENOX SUBQ SCH (06:11)
[2016-10-03] MEDS: HUMALOG SUBQ SCH ×4 (06:12→22:20)
[2016-10-03] MEDS: COREG PO SCH ×2 (08:19→22:20)
[2016-10-03] MEDS: LEVEMIR SUBQ SCH (08:20)
[2016-10-03] MEDS: MYCOSTATIN POWDER TOP SCH ×2 (08:23→22:21)
[2016-10-03] MEDS: LAC-HYDRIN 12% LOTION TOP SCH ×2 (08:23→22:21)
[2016-10-03] MEDS: CALMOSEPTINE OINTMENT TOP PRN (08:24)
--- NOTE | 2016-10-03 14:12 | PROGRESS NOTE ---
DATE: 10/03/2016 SUBJECTIVE: This patient is resting comfortably in bed. No complaints today. No acute events overnight. OBJECTIVE: Vital Signs: Temperature 98.3 degrees, pulse 66, respiratory rate 20, blood pressure 141/81, oxygen saturation 97% on room air. HEENT: Head normocephalic. No trauma. PERRLA. Neck: Supple. No JVD. No masses. Central trachea. Chest: Clear to auscultation. No wheezing. No rales. Abdomen: Soft, nontender, nondistended. No hepatosplenomegaly. Extremities: No edema. No clubbing. No cyanosis. Neurological: The patient is alert and oriented x3. No focal deficits. LABORATORY: Sodium 139, potassium 4.4, chloride 97, bicarbonate 32, BUN 31, creatinine 1.2, glucose 233, calcium 9.7. ASSESSMENT AND PLAN: 1. Uncontrolled diabetes mellitus type 2. I increased the dose of Levemir from 45-50 units per day. I also will continue with sliding scale insulin and pattern of blood sugar. 2. Dehydration resolved. 3. Vitamin D deficiency. Continue with vitamin D replacement. 4. Alzheimer's dementia. Aware. 5. Acute kidney injury. This is his baseline. Resolved. 6. Right apical lung nodule. This patient will need to repeat the CT scan of the chest in about 3-6 months. He needs to follow with a getter filler as an outpatient for evaluation. 7. Physical deconditioning. Continue physical therapy. 8. Disposition. Antisubmarine Weapons Officer is working on fci placement for this patient. cc: Chencho Young MD
[2016-10-04] MEDS: LOVENOX SUBQ SCH (06:32)
[2016-10-04] MEDS: HUMALOG SUBQ SCH ×4 (06:32→21:19)
[2016-10-04] MEDS: COREG PO SCH ×2 (09:59→21:18)
[2016-10-04] MEDS: LEVEMIR SUBQ SCH (09:59)
[2016-10-04] MEDS: MYCOSTATIN POWDER TOP SCH ×2 (14:03→21:17)
[2016-10-04] MEDS: LAC-HYDRIN 12% LOTION TOP SCH ×2 (16:50→21:17)
--- NOTE | 2016-10-04 17:03 | PROGRESS NOTE ---
DATE: 10/04/2016 SUBJECTIVE: This patient is resting comfortably in bed. No complaints today. No acute events overnight. OBJECTIVE: Vital Signs: Temperature 98.2 degrees, pulse 78, respiratory rate 20, blood pressure 137/61, oxygen saturation 95% on room air. HEENT: Head normocephalic. No trauma. PERRLA. Neck: Supple. No JVD. No masses. Central trachea. Chest: Clear to auscultation. No wheezing. No rales. Abdomen: Soft, obese, protuberant, nontender. No hepatosplenomegaly. Extremities: No edema. No clubbing. No cyanosis. Neurological: The patient is alert and oriented x3. No focal deficits. LABORATORY STUDIES: No lab work done today. ASSESSMENT AND PLAN: 1. Uncontrolled diabetes type 2. I will continue with Levemir 50 units per day. I will also continue with sliding scale insulin and pattern of blood sugar. 2. Dehydration, resolved. 3. Vitamin D deficiency. Continue with vitamin D replacement. 4. Alzheimer's dementia, aware. 5. Acute kidney injury, resolved. This is his baseline. 6. Right apical lung nodule. This patient will need to repeat a CT scan of his chest in about 3- 6 months. He needs to follow up with a health and safety director as an outpatient for evaluation. 7. Physical deconditioning. Continue physical therapy. 8. Disposition. imaging services director is working [facility] for [facility] patient. cc: Chencho Young MD
[2016-10-05] MEDS: LOVENOX SUBQ SCH (05:41)
[2016-10-05 06:14] LABS: AGAP 9; BUN 24 mg/dL (8-22); CALCIUM 9.4 mg/dL (8.8-10.2); CHLORIDE 97 mmol/L (98-107); COSMO 282; POTASSIUM 4.5 mmol/L (3.5-5.1); SODIUM 138 mmol/L (136-145); TCO2 32 mmol/L (25-35)
[2016-10-05] MEDS: HUMALOG SUBQ SCH ×2 (06:42→11:54)
[2016-10-05] MEDS ORDERED: INSULIN PEN NEEDLES ONE (07:05)
[2016-10-05 07:38] VITALS: BP 138/79
[2016-10-05] MEDS: COREG PO SCH (09:04)
[2016-10-05] MEDS: LEVEMIR SUBQ SCH (09:05)
[2016-10-05] MEDS: MYCOSTATIN POWDER TOP SCH (09:09)
[2016-10-05] MEDS: LAC-HYDRIN 12% LOTION TOP SCH (09:10)
--- NOTE | 2016-10-05 10:53 | DISCHARGE SUMMARY ---
ADMISSION DATE: 09/23/2016 DISCHARGE DATE: 10/05/2016 CONSULTATIONS: None. PERTINENT PROCEDURES: 1. Head CT showed no evidence of acute disease. Chronic microvascular white matter disease, cerebral atrophy. 2. Pulmonary arteriogram showed right apical noncalcified lung nodule measuring up to 1.9 cm. No evidence of pulmonary embolism. DISCHARGE DIAGNOSES: 1. Uncontrolled diabetes mellitus type 2. Continue with Levemir. 2. Dehydration, resolved. 3. Vitamin D deficiency. Continue with supplementation. 4. Alzheimer's dementia. Aware. 5. Acute kidney injury, resolved. The patient is back at baseline. 6. Right apical lung nodule. The patient will need repeat CT scan of chest in 3-6 months and follow up with auxiliary operator as an outpatient for evaluation. 7. Physical deconditioning. Patient has worked with physical therapy. He is being discharged to rehabilitation. HISTORY OF PRESENT ILLNESS: Mr. Arizmendi is an 81-year-old male who carries a past medical history of BPH, gallstones, dementia, diabetes mellitus type 2, hypertension, chronic back pain, left knee osteoarthritis. 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 He lives at home by himself in very filthy conditions. He reportedly wears Depends. On arrival to the ED, he was noted as having maggots in his Depends. He drove to [email or web address] on the day of his admission. He got back home, attempted to go inside, and fell somewhere between his car and the house. Family was originally at bedside. He does have a daughter who lives close. He was admitted in [address] Castillo. At that time, he was noted to be living in filthy conditions. His daughter was worried about self neglect. They stated that they would be unable to care for him at home. LABORATORY DATA: CT and chest x-ray were performed in the emergency room. Chest x-ray was clear. However, there was some question of a right 1st rib that the imaging appears to be somewhat malrotated. CTA was ordered for an elevated D-dimer. Laboratory data showed an elevated glucose. HOSPITAL COURSE: The patient does have a history of diabetes type 2. It appeared to be uncontrolled, as well as a mild elevation in his white blood cell count. The patient was admitted for type 2 diabetes with hyperglycemia. Placed on sliding scale insulin and a diabetic diet, as well as fluid volume depletion and started on IV fluids with gentle hydration. The patient did develop an acute kidney injury while in the hospital. It did resolve with continued IV hydration. The patient is back at his baseline. Due to the patient's Alzheimer's dementia, he was unable to make any medical decisions on his own. nutrition services associate was consulted for rehab placement. The patient was also noted to have a right apical lung nodule. The patient will require another repeat CT of the chest in about 3 months. Follow up with his auxiliary operator in about 6 months. The patient has been accepted to [facility]. VITAL SIGNS: At the time of his discharge, temperature is 98.2 degrees, heart rate 70, respirations 20, blood pressure 138/79, O2 is 99% on room air. DISCHARGE DIET: Diabetic. DISCHARGE MEDICATIONS: As per Dr. Lewis: 1. Tylenol 600 mg p.o. q.6 hours p.r.n. 2. Coreg 6.25 mg p.o. q.12 hours. 3. Vitamin D2 50,000 units p.o. every 7 days. 4. Levemir 50 units subcutaneous daily. 5. Glucophage 500 mg p.o. daily. 6. Mycostatin powder 1 application topical b.i.d. FOLLOWUP: Patient is being discharged to [facility]. He will need to follow up with a repeat CT scan in 3 months as well as follow up with a auxiliary operator in 6 months. The patient can return to the ED for any worsening of symptoms. DISCHARGE TIME: 30 minutes. Dictated by JULIANNE Hoskins for Chencho Young MD cc: Chencho Young MD
[2016-10-05] MEDS ORDERED: GLUCOPHAGE PO SCH (17:00)
== END 2016-10-05 13:45 ==
LOC: ED 18:40 → SUATTDRO 18:41 → 4N 09-23 02:05
PROVIDERS: ATTEND Internal Medicine